=== PATIENT | female | born 1975 | race Caucasian/White ===

== ENCOUNTER 2020-01-18 15:04 | Inpatient (IN) | payer OTHER ==
[2020-01-18] MEDS ORDERED: EPINEPHRINE 1 MG/ML 1 ML VIAL ONE (15:06)
--- NOTE | 2020-01-18 15:10 | ED ---
Allergic Reaction/Systemic - HPI Summary HPI Summary: This patient is a 44 year old female brought in by EMS presenting to [facility] with a chief complaint of allergic reaction. Patient has SOB, facial edema, throat tightness. and urticaria diffusely on the back after eating a chicken brice salad at [employer]. Patient had an episode of nausea and vomiting at onset. The patient went to [facility] urgent care where she was administered 0.3 mls of Epinephrine and then transported by EMS here where she was given 10 mg of Decadron [employer]. EMS and patient state improvement after medication, with the primary complaint continued throat swelling and difficulty speaking. The patient states the rash on her back is not pruritic. Patient does not know what caused the reaction and states no prior allergy Hx. Pt denies any fever, chills , erythema of eyes, CP, cough, abdominal pain, N/V, dysuria, hematuria, myalgia , or dizziness No Home Medications. - History of Current Complaint Hx Obtained From: Patient, EMS Onset/Duration: Started minutes ago, Started hours ago Character: Hives Associated Signs And Symptoms: Positive: Hoarseness, Rash, Throat Tightening - Allergies/Home Medications Allergies/Adverse Reactions: Allergies Allergy/AdvReac Type Severity Reaction Status Date / Time morphine Allergy Rash And Verified 01/18/20 15:17 Itching Home Medications: Home Medications ARIPiprazole TAB* [Abilify TAB*] 5 mg PO DAILY 01/18/20 [History Confirmed ] Escitalopram * [Lexapro 10 mg (NF)] 20 mg PO DAILY 01/18/20 [History Confirmed 01/18/20] Etonogestrel [Nexplanon] 68 mg SUBCUT ONCE 01/18/20 [History Confirmed 01/18/20] Triamterene/HCTZ 37.5-25 MG* [Dyazide CAP*] 1 cap PO DAILY 01/18/20 [History Confirmed 01/18/20] PMH/Surg Hx/FS Hx/Imm Hx Endocrine/Hematology History: Denies: Hx Diabetes EENT History: Denies: Hx Deafness - Family History Known Family History: Negative: Seizure Disorder - Social History Substance Use Type: Reports: None Do You Chew or Dip Tobacco: No Review of Systems Negative: Fever, Chills Negative: Erythema Positive: Sore Throat - Tightness Negative: Chest Pain Positive: Shortness Of Breath. Negative: Cough Positive: Vomiting, Nausea. Negative: Abdominal Pain Negative: dysuria, hematuria Positive: Edema Positive: Rash Neurological/Mental Status: Other - Neg: Dizziness All Other Systems Reviewed And Are Negative: No Physical Exam - Summary Physical Exam Summary: Constitutional: Well-developed, Well-nourished, Alert. (-) Distressed Skin: Warm, Dry HENT: Normocephalic; Atraumatic Eyes: Conjunctiva normal Neck: Musculoskeletal ROM normal neck. (-) JVD, (-) Stridor, (-) Tracheal deviation Cardio: Rhythm regular, rate normal, Heart sounds normal; Intact distal pulses; The pedal pulses are 2+ and symmetric. Radial pulses are 2+ and symmetric. (-) Murmur Pulmonary/Chest wall: Effort normal. (-) Respiratory distress, (-) Wheezes, (-) Rales Abd: Soft, (-) tenderness, (-) Distension, (-) Guarding, (-) Rebound Musculoskeletal: (-) Edema Lymph: (-) Cervical adenopathy Neuro: Alert, Oriented x3 Psych: Mood and affect Normal Triage Information Reviewed: Yes Vital Signs Reviewed: Yes Procedures - Sedation Patient Received Moderate/Deep Sedation with Procedure: No Re-Evaluation - Re-Evaluation First Eval Re-Evaluation Time: 15:44 Change: Improved Comment: She states her tongue feels less swollen and all other symptoms have resolved. Second Eval Re-Evaluation Time: 16:29 Comment: Can now see her tonsils, swelling of the tongue has decreased. Allergic Reaction Course/Dx - Course Course Of Treatment: This patient is a 44 year old female brought in by EMS presenting to [facility] with a chief complaint of allergic reaction. Patient has SOB , facial edema, throat tightness. and urticaria diffusely on the back after eating a Brice Salad at [employer]. Patient had an episode of nausea and vomiting at onset. The patient went to [facility] urgent care where she was administered 0.3 mls of Epinephrine and then transported by EMS here where she was given 10 mg of Decadron [employer]. EMS and patient state improvement after medication, with the primary complaint continued mild throat swelling and difficulty speaking. The patient states the rash on her back is not pruritic. Patient does not know what caused the reaction. Patient administered Pepcid IV. After medication she states her tongue feels less swollen and all other medications have resolved. Dr. Webster, Hospitalist, accepted the patient for admission. This plan was discussed with the patient and she was agreeable with this plan. - Diagnoses Provider Diagnoses: Anaphylaxis, Angioedema - Critical Care Time Critical Care Time: 75-104 min - 75 mins Discharge ED - Sign-Out/Discharge Documenting (check all that apply): Patient Departure - Admission - Discharge Plan Condition: Stable Disposition: ADMITTED TO [facility] - Attestation Statements Document Initiated by Scribe: Yes Documenting Scribe: Migel Bartlett Provider For Whom Scribe is Documenting (Include Credential): Mikey Schulte MD Scribe Attestation: IMigel, scribed for Mikey Schulte MD on 01/18/20 at 1751. Status of Scribe Document: Ready
[2020-01-18] MEDS ORDERED: Famotidine IV* 10 MG/ML 2 ML (20 mg) IV SLOW PU ONE (15:12)
--- NOTE | 2020-01-18 17:19 | PN ---
Date of Service: 01/18/20 Critical Care Services: 44 y.o female presented with angioedema after eating a chicken salad. She receive epi x 2 benadryl and pepcid. She is getting better. She reports that it is getting better. Vital Signs: Temp Pulse Resp BP SpO2 FiO2 97.8 F 76 19 216/109 97 01/18/20 15:07 01/18/20 16:00 01/18/20 16:00 01/18/20 15:13 01/18/20 16:00 Physical Exam: Gen: awake and alert HEENT: nc swollen neck and tongue swollen cannot see back of throat; No stridor. Lungs: CTA-Bilaterally no wheezes and no rhonchi Cardiac: s1 s2 rrr no murmurs and no rubs Abdomen: soft nt/nd bs+ Extremities: no edema. Neuro: AAO X3 can move all extremities. Fluid Balance (Past 24 Hours): I= O= Net Intake & Output 01/16/20 01/17/20 01/18/20 01/19/20 06:59 06:59 06:59 06:59 Weight 170 lb Impression: 1 Angioedema 2. hx of htn Plan: -Monitor the patient is the ICU -Low threshold for intubation -Decadron, h1 and h2 antagonist ordered -Labs ordered and pending. -Hold swallowing till swelling is better. -Lovenox for chemical dvt ppx. Critical Care Time: 30 minutes.
[2020-01-18 17:52] LABS: ABS Eosinophils 0.1 10^3/ul (0-0.6); ABS Lymphocytes 2.7 10^3/ul (1.0-4.8); ABS Monocytes 0.6 10^3/ul (0-0.8); ABS Neutrophils 5.6 10^3/ul (1.5-7.7); Eosinophil % 1.4 %; Hematocrit 44 % (35-47); Lymphocyte % 30.4 %; Mean Corpuscular HGB Conc 34 g/dL (31-36); Mean Corpuscular Hemoglobin 31 pg (27-31); Mean Corpuscular Volume 90 fL (80-97); Mean Platelet Volume 8.7 fL (7.4-10.4); Nucleated Red Blood Cells % 0.2; Platelet Count 188 10^3/uL (150-450); Red Blood Count 4.87 10^6 /uL (3.70-4.87); Red Cell Distribution Width 14 % (10-15)
[2020-01-18] MEDS ORDERED: Labetalol IV* 5 MG/ML 20 ML VIAL IV PUSH PRN (18:00)
[2020-01-18 18:03] LABS: ALT 64 U/L (7-52); AST 39 U/L (13-39); Albumin 4.5 g/dL (3.2-5.2); Alkaline Phosphatase 48 U/L (34-104); Globulin 2.2 g/dL (2-4); Indirect Bilirubin 0.2 mg/dL (0.3-1.0); Magnesium 1.9 mg/dL (1.9-2.7); Phosphorus 2.9 mg/dL (2.5-5.0); Total Protein 6.7 g/dL (6.4-8.9)
[2020-01-18] MEDS: Dexamethasone IV* 4 MG/ML 1 ML (4 MG) IV SLOW PU SCH (18:08)
[2020-01-18] MEDS: diPHENhydraMINE IV* 50 MG/ML 1 ml VIAL (BENADRYL) IV SCH (18:08)
[2020-01-18 18:09] LABS: HCG Pregnancy < 0.60 mIU/mL
[2020-01-18 18:18] LABS: TSH (Thyroid Stimulating Horm) 1.09 mcIU/mL (0.34-5.60)
[2020-01-18] MEDS ORDERED: Enoxaparin(*) 40 MG/0.4 ML SYR SUBCUT ONE (21:00)
[2020-01-18] MEDS: Famotidine IV* 10 MG/ML 2 ML (20 mg) IV SLOW PU SCH (21:07)
[2020-01-19] MEDS: diPHENhydraMINE IV* 50 MG/ML 1 ml VIAL (BENADRYL) IV SCH ×4 (00:26→17:53)
[2020-01-19] MEDS: Dexamethasone IV* 4 MG/ML 1 ML (4 MG) IV SLOW PU SCH ×4 (00:26→17:53)
[2020-01-19 06:05] LABS: EGFR African American 109.2 (>60); EGFR Non-African American 90.3 (>60)
[2020-01-19] MEDS ORDERED: Influenza VAC *QUAD* 2019-20* 0.5 ML SYRINGE IM ONE (09:00)
[2020-01-19 09:15] LABS: BUN/Creatinine Ratio 15.5 (8-20); Calcium 8.9 mg/dL (8.6-10.3); Potassium 4.3 mmol/L (3.5-5.0)
[2020-01-19] MEDS: Escitalopram * 10 MG TAB PO SCH (09:22)
[2020-01-19] MEDS: Famotidine IV* 10 MG/ML 2 ML (20 mg) IV SLOW PU SCH ×2 (09:23→21:50)
[2020-01-19] MEDS: Labetalol TAB* 100 MG PO SCH ×2 (09:23→21:50)
--- NOTE | 2020-01-19 10:29 | PN ---
Date of Service: 01/19/20 Critical Care Services: She is doing well swelling is much better in throat. Vital Signs: Temp Pulse Resp BP SpO2 FiO2 98.3 F 87 26 163/103 96 01/19/20 07:38 01/19/20 08:00 01/19/20 09:00 01/19/20 09:00 01/19/20 08:00 Physical Exam: Gen: Awake alert and oriented in no distress HEENT: nc/at swelling decreased. I can see her uvula Neck feels much less swollen Lungs: CTA-B no wheezes and no rhonchi Cardiac: s1s2 rrr no murmurs and no rubs Abdomen: soft nt/nd bs+ and no guarding and no rebound tenderness Extremities: no edema Neuro: Awake alert and oriented and moving all extremities. Fluid Balance (Past 24 Hours): I= O= Net Intake & Output 01/17/20 01/18/20 01/19/20 01/20/20 06:59 06:59 06:59 06:59 Intake Total 0 Balance 0 Weight 170 lb Intake: Oral 0 Other: Estimated Void Large Date of Last Bowel unknown Movement # Voids 1 Labs: Laboratory Results - last 24 hr 01/18/20 01/18/20 01/19/20 15:16 15:16 05:41 WBC 9.0 RBC 4.87 Hgb 15.0 Hct 44 MCV 90 MCH 31 MCHC 34 RDW 14 Plt Count 188 MPV 8.7 Neut % (Auto) 61.6 Lymph % (Auto) 30.4 [place] % (Auto) 6.2 Eos % (Auto) 1.4 Baso % (Auto) 0.4 Absolute Neuts (auto) 5.6 Absolute Lymphs (auto) 2.7 Absolute Monos (auto) 0.6 Absolute Eos (auto) 0.1 Absolute Basos (auto) 0.0 Absolute Nucleated RBC 0.0 Nucleated RBC % 0.2 Sodium 135 Potassium 4.3 Chloride 106 Carbon Dioxide 19 L Anion Gap 10 BUN 11 Creatinine 0.71 Est GFR ( Amer) 109.2 Est GFR (Non-Af Amer) 90.3 BUN/Creatinine Ratio 15.5 Glucose 160 H Calcium 8.9 Phosphorus 2.9 Magnesium 1.9 Total Bilirubin 0.30 Direct Bilirubin 0.10 Indirect Bilirubin 0.2 L AST 39 ALT 64 H Alkaline Phosphatase 48 Total Protein 6.7 Albumin 4.5 Globulin 2.2 Albumin/Globulin Ratio 2.0 TSH 1.09 Beta HCG, Quant < 0.60 Impression: 1. Angioedema 2. hypertension Plan: Plan -She is doing much better swelling much decreased -continue decadron, pepcid and benadryl -Out of ICU -Patient request switched to oral labetelol for bp control with holding parameters -Regular diet per patient request -Activity as tolerated -She will avoid chicken, salad and anchovies in the near future -needs to follow up with and wall taper -dc with tariq -transferred to the floor spoke to Dr. Webster. Critical Care Time:
[2020-01-19] MEDS: Hydrochlorothiazide TAB* 25 MG PO SCH (11:41)
[2020-01-19 14:12] LABS: ABS Lymphocytes 0.8 10^3/ul (1.0-4.8); ABS Monocytes 0.6 10^3/ul (0-0.8); ABS Neutrophils 12.3 10^3/ul (1.5-7.7); Hematocrit 43 % (35-47); Hemoglobin 14.3 g/dL (12.0-16.0); Lymphocyte % 5.8 %; Mean Corpuscular HGB Conc 34 g/dL (31-36); Mean Corpuscular Hemoglobin 30 pg (27-31); Mean Corpuscular Volume 90 fL (80-97); Mean Platelet Volume 8.5 fL (7.4-10.4); Nucleated Red Blood Cells % 0.1; Platelet Count 191 10^3/uL (150-450); Red Blood Count 4.71 10^6 /uL (3.70-4.87); Red Cell Distribution Width 14 % (10-15); White Blood Count 13.8 10^3/uL (3.5-10.8)
[2020-01-19] MEDS ORDERED: Enoxaparin(*) 40 MG/0.4 ML SYR SUBCUT SCH (21:00)
[2020-01-20] MEDS: diPHENhydraMINE IV* 50 MG/ML 1 ml VIAL (BENADRYL) IV SCH ×2 (00:21→05:47)
[2020-01-20] MEDS: Dexamethasone IV* 4 MG/ML 1 ML (4 MG) IV SLOW PU SCH ×2 (00:21→05:47)
[2020-01-20 08:48] VITALS: BP 157/86
[2020-01-20] MEDS ORDERED: diPHENhydraMINE PO* 50 MG PO PRN (09:24)
[2020-01-20] MEDS: Famotidine IV* 10 MG/ML 2 ML (20 mg) IV SLOW PU SCH (09:38)
[2020-01-20] MEDS: Escitalopram * 10 MG TAB PO SCH (09:52)
[2020-01-20] MEDS: Labetalol TAB* 100 MG PO SCH (09:52)
[2020-01-20] MEDS: Hydrochlorothiazide TAB* 25 MG PO SCH (09:52)
[2020-01-20] MEDS ORDERED: Famotidine TAB* 20 MG PO SCH (10:00)
[2020-01-20] MEDS ORDERED: Dexamethasone TAB* 4 MG PO SCH (10:00)
--- NOTE | 2020-01-20 20:46 | DS ---
CC: Dr. Bjorn Haque * DISCHARGE SUMMARY: DATE OF ADMISSION: 01/18/20 DATE OF DISCHARGE: 01/20/20 PRIMARY CARE PROVIDER: Dr. Bjorn Haque. SUBJECTIVE: This is a 44-year-old female, who came into the emergency room via EMS with a chief complaint of allergic reaction associated with shortness of breath and facial edema, throat tightness and urticaria diffusely on the back after having lunch with her that included chicken caesar salad at the [employer] and possible anchovy and clams soup. Within 30 to 40 minutes after a lunch, she started feeling sensation of facial edema and swelling, and her who was with her in the company reported that he visually noticed the swelling of her face and worsening immediately in front of his eyes. She was transported by ambulance after receiving several doses of epinephrine and admitted to the intensive care unit under the supervisor poultry hatchery service and she was given as well Decadron prior to arrival. She was started on IV. She was seen by the supervisor poultry hatchery, Dr. Hal Lu. By the time she was admitted to ICU, her symptoms started to subside and her medications were maintained including Decadron IV, Benadryl, and Pepcid IV, and on 01/19/20, she was transferred to the medical floor. Case was discussed with the supervisor poultry hatchery for continuity of care. Case was signed out to me on 01/19/20 as a potential transfer. The patient was seen and evaluated by me today. She has been tolerating diet well, eager to go home. I spoke with her . Her vitals have been stable. She has reported no residual symptoms. I reviewed her medications and on discharge , I agree with the supervisor poultry hatchery to switch her antihypertensive medication to labetalol and triamterene with HCTZ was discontinued, and I placed her on labetalol 100 mg p.o. b.i.d. and hydrochlorothiazide 25 separately. I also instructed the patient to discuss with her primary for potential referral for an six pack loader operator, to remain diligent and avoiding any shellfish food including food with that may contain nuts until she is cleared by her six pack loader operator or her primary. She will be provided a prescription for EpiPen 2 packs, prescription taper for the Decadron along with Benadryl and Pepcid, and I provided backup prescription of Decadron oral as well to be in her possession as well as the EpiPen. Therefore, after evaluation and assessment today, she deemed stable for discharge from the medical point of view. PHYSICAL EXAMINATION: Temperature 97.9, respiratory rate 16, pulse 56, saturation 98%, blood pressure averaging between 144/73, and as high as 171/86. In general, she is awake, alert, pleasant, in no apparent cardiac respiratory distress. Head and Neck: Normocephalic, atraumatic. Supple. Lungs: Clear to auscultation bilaterally. Abdomen: Positive bowel sounds. Soft, nontender , nondistended. Extremities: No pedal edema. Her face does not reveal any significant edema. No angioedema. No lip swelling. Her skin revealed no significant rash and no urticaria. DIAGNOSTIC STUDIES/LAB DATA: CBC was normal on admission. White count up to 13 ,000, understandingly she is on steroids. Chemistry fairly unremarkable. DISCHARGE MEDICATIONS: 1. EpiPen pack 0.3 mg intramuscular as needed x2 pen. 2. Dexamethasone 4 mg tablet to take 1 tab t.i.d. for 3 days, 1 tab b.i.d. for 3 days, 1 tab daily for 3 days, and stop. 3. Benadryl 50 mg every 6 hours as needed. 4. Pepcid 20 mg b.i.d. 5. Hydrochlorothiazide 25 mg daily. 6. Continue Nexplanon. 7. Lexapro 20 mg daily. 8. Abilify 5 mg daily. 9. She was told to hold on using triamterene and hydrochlorothiazide until further clarified by her six pack loader operator. DISCHARGE INSTRUCTIONS: The patient was instructed to avoid peanut and shellfish foods and all nuts until she was evaluated by her six pack loader operator. Follow up with her primary care in 1 to 2 weeks. Take all medications as prescribed. Keep your EpiPen in possession at all times. If symptoms reoccur or facial swelling, to report to the emergency room immediately. DISCHARGE CONDITIONS: Stable DISCHARGE DISPOSITION: Home [id number]/[facility] #: [id number] MTDD
--- NOTE | 2020-02-01 17:32 | DS ---
CC: Dr. Bjorn Haque DISCHARGE SUMMARY: DATE OF ADMISSION: 01/18/20 DATE OF DISCHARGE: 01/20/20. ADDENDUM: DISCHARGE DIAGNOSES: 1. Angioedema secondary to food allergy. 2. Allergic reaction to food, suspect SEAFOOD and SHELLFISH. ADDITIONAL DISCHARGE DIAGNOSES: 1. Hypertension. 2. Anxiety. [id number]/[facility] #: [id number]
== END 2020-01-20 11:50 | disposition home or self-care (01) | DRG 923 ==
LOC: ED 15:04 → ICU 16:20 → MED 01-19 08:37
PROVIDERS: ADMIT Internal Medicine; ATTEND Internal Medicine
DX: T78.1XXA Other adverse food reactions, not elsewhere classified, initial encounter (principal); I10 Essential (primary) hypertension; F41.9 Anxiety disorder, unspecified; Z88.5 Allergy status to narcotic agent; Z91.013 Allergy to seafood
CPT/HCPCS: 36415; 80048; 80076; 83735; 83883; 84100; 84443; 84702; 85025; 87641; 90686; 96374; 96375; 99284; A9270-GY; J1100; J1200; J1650; J8540